=== PATIENT | male | born 1990 | race Caucasian/White ===

== ENCOUNTER 2018-05-20 16:35 | Emergency (ER) | payer MEDICAID ==
[~2018-05-20] VITALS: Ht 172.7 cm; Wt 81.6 kg
[2018-05-20 16:40] VITALS: BP 112/65
--- NOTE | 2018-05-20 16:50 | NUR ---
C/O ABDOMINAL PAIN 15 MIN PRIOR TO ARRIVAL; DENIES N/V/D SKIN IS PINK/WARM/DRY; AAOX4 WITH EVEN AND STEADY GAIT; LUNGS CLEAR BL; HR EVEN AND REGULAR; PT DENIES ANY FEVER, CP, SOB, OR COUGH AT THIS TIME; PATIENT STATES PAIN OF 8/10 AT THIS TIME; VSS; PATIENT POSITIONED FOR COMFORT; HOB ELEVATED; BEDRAILS UP X2; BED DOWN. ER MD MADE AWARE OF PT STATUS.
--- NOTE | 2018-05-20 17:27 | NUR ---
Patient being evaluated by physician at bedside.
[2018-05-20] MEDS ORDERED: ALUMINUM HYD/MAG/SIMETHICONE 30 ML UDC PO ONE (17:35)
[2018-05-20] MEDS ORDERED: FAMOTIDINE 20 MG TAB PO ONE (17:35)
[2018-05-20 18:31] VITALS: BP 112/65
--- NOTE | 2018-05-20 18:31 | NUR ---
Patient discharged with v/s stable. Written and verbal after care instructions given and explained. Patient alert, oriented and verbalized understanding of instructions. Ambulatory with steady gait. All questions addressed prior to discharge. ID band removed. Patient advised to follow up with PMD. Rx of PEPCID, HYDROCORTISONE given. Patient educated on indication of medication including possible reaction and side effects. Opportunity to ask questions provided and answered.
== END 2018-05-20 18:31 | disposition home or self-care (01) ==
LOC: MED 16:35
DX: L30.9 Dermatitis, unspecified (principal); R10.32 Left lower quadrant pain
CPT/HCPCS: 81002; 99283

== ENCOUNTER 2019-03-22 18:00 | Emergency (ER) | payer MEDICAID ==
[~2019-03-22] VITALS: Ht 172.7 cm; Wt 59.0 kg
[2019-03-22 18:12] VITALS: BP 109/66
[2019-03-22 21:02] LABS: BASOPHILS % (AUTO) 0.3 % (0.0-2.0); EOSINOPHILS # (AUTO) 0.1 K/uL (0-0.4); EOSINOPHILS % (AUTO) 2.3 % (0.0-4.0); HEMATOCRIT 46.2 % (36-52); HEMOGLOBIN 15.8 g/dL (12.0-18.0); LYMPHOCYTES # (AUTO) 1.1 K/uL (2.0-11.5); LYMPHOCYTES % (AUTO) 17.1 % (20.5-51.1); MEAN CORPUSCULAR HEMOGLOBIN 31 pg (27-31); MEAN CORPUSCULAR HGB CONC 34 g/dL (33-37); MEAN CORPUSCULAR VOLUME 90.6 fL (80-94); MONOCYTES # (AUTO) 0.5 K/uL (0.8-1.0); MONOCYTES % (AUTO) 7.7 % (1.7-9.3); NEUTROPHILS # (AUTO) 4.6 K/uL (1.8-7.7); NEUTROPHILS % (AUTO) 72.6 % (42.2-75.2); PLATELET COUNT (AUTO) 238 K/uL (140-450); RED CELL DISTRIBUTION WIDTH 13.2 % (11.6-13.7); WHITE BLOOD COUNT (AUTO) 6.3 K/uL (4.8-10.8)
[2019-03-22 21:17] LABS: ANION GAP 9.9 (8-16); CREATININE 0.8 mg/dL (0.7-1.3); POTASSIUM 3.9 mmol/L (3.5-5.1)
[2019-03-22 21:54] VITALS: BP 98/73
== END 2019-03-22 21:54 | disposition home or self-care (01) ==
LOC: MED 18:00
DX: T63.441A Toxic effect of venom of bees, accidental (unintentional), initial encounter (principal); I95.1 Orthostatic hypotension; Y92.89 Other specified places as the place of occurrence of the external cause
CPT/HCPCS: 36415; 80048; 85025; 93005; 99284

== ENCOUNTER 2020-09-28 16:32 | Emergency (ER) | payer MEDICAID ==
[~2020-09-28] VITALS: Ht 172.7 cm; Wt 61.7 kg
--- NOTE | 2020-09-28 16:39 | NUR ---
W/C ASSISTED TO BED 8
[2020-09-28 16:40] VITALS: BP 166/87
--- NOTE | 2020-09-28 16:44 | NUR ---
30 y/o M coming in from home with c/c left leg rash. Pt states fever two days ago, he went to bed, woke up the next morning and noticed the rash to the left leg. Rash with redness/warmth/swelling noted to left lower extremity. Pt states pain is 8/10, swelling/constant, radiating up his left leg. Pt states associated fever, chills. Pt states he took Ibuprofen with no relief. Denies N/V/D, chest pain,a bdominal pain, cough, cold-like symptmos. Pt placed onto BP cuff/pulse ox. Lung sounds CTA. Bed locked in lowest position, side rails x 1. PMH/Meds: Denies NKA Sx: denies
--- NOTE | 2020-09-28 16:45 | NUR ---
Dr. Rivas is evaluating patient at bedside.
[2020-09-28] MEDS ORDERED: cephALEXin 500 MG CAP PO ONE (17:00)
[2020-09-28] MEDS ORDERED: CEPH500T PO (17:04)
--- NOTE | 2020-09-28 17:25 | NUR ---
Patient resting in position of comfort in semi-fowlers position. Respirations even/unlabored. All pt needs met at this time. bus monitor in place. Bed locked in lowest position, side rails x1.
[2020-09-28 17:33] VITALS: BP 114/55
== END 2020-09-28 17:33 | disposition home or self-care (01) ==
LOC: MED 16:32
DX: L03.116 Cellulitis of left lower limb (principal); Z79.899 Other long term (current) drug therapy
CPT/HCPCS: 99283

== ENCOUNTER 2020-10-01 11:49 | Inpatient (IN) | payer MEDICAID, SELFPAY ==
[~2020-10-01] VITALS: Ht 172.7 cm; Wt 62.1 kg
[~2020-10-01 11:49] MED LIST: CEPH500T PO
[2020-10-01 11:57] VITALS: BP 106/59
[2020-10-01 12:32] LABS: BASOPHILS % (AUTO) 0.3 % (0.0-2.0); EOSINOPHILS # (AUTO) 0.1 K/uL (0-0.4); EOSINOPHILS % (AUTO) 0.9 % (0.0-4.0); HEMATOCRIT 36.7 % (36-52); HEMOGLOBIN 12.6 g/dL (12.0-18.0); LYMPHOCYTES # (AUTO) 1.1 K/uL (2.0-11.5); LYMPHOCYTES % (AUTO) 17.3 % (20.5-51.1); MEAN CORPUSCULAR HEMOGLOBIN 29 pg (27-31); MEAN CORPUSCULAR HGB CONC 34 g/dL (33-37); MONOCYTES # (AUTO) 0.5 K/uL (0.8-1.0); MONOCYTES % (AUTO) 8.8 % (1.7-9.3); NEUTROPHILS # (AUTO) 4.5 K/uL (1.8-7.7); NEUTROPHILS % (AUTO) 72.7 % (42.2-75.2); PLATELET COUNT (AUTO) 270 K/uL (140-450); RED BLOOD CELL COUNT(AUTO) 4.37 MIL/uL (4.20-6.10); RED CELL DISTRIBUTION WIDTH 13.4 % (11.6-13.7); WHITE BLOOD COUNT (AUTO) 6.2 K/uL (4.8-10.8)
[2020-10-01] MEDS ORDERED: cefTRIAXone 1,000 MG in LIDOCAINE MPF 1% 2.1 ML IM ONE (13:05)
[2020-10-01] MEDS ORDERED: VANCOMYCIN 1,000 MG in DEXTROSE 5% 250 ML IV ONE (13:05)
[2020-10-01] MEDS ORDERED: VANCOMYCIN 1,000 MG VIAL ONE ×3 (13:11→22:41)
[2020-10-01] MEDS ORDERED: cefTRIAXone 1,000 MG VIAL ONE (13:11)
[2020-10-01] MEDS ORDERED: ZOLPIDEM 5 MG TAB PO PRN (13:15)
[2020-10-01] MEDS ORDERED: ONDANSETRON 4 MG/2 ML VIAL IM/IVP PRN (13:15)
[2020-10-01] MEDS ORDERED: LORazepam 2 MG/ML VIAL IM/IVP PRN (13:15)
[2020-10-01] MEDS ORDERED: HYDROcodone/APAP 5/325 MG 1 TAB TAB PO PRN (13:15)
[2020-10-01] MEDS ORDERED: MORPHINE SULFATE 2 MG/ML SYR IVP PRN (13:15)
[2020-10-01] MEDS ORDERED: DOCUSATE SODIUM 100 MG GELCAP PO PRN (13:15)
[2020-10-01] MEDS: NACL 0.9% 1,000 ML IV SCH (13:15)
[2020-10-01] MEDS ORDERED: ACETAMINOPHEN 325 MG TAB PO PRN (13:15)
[2020-10-01] MEDS ORDERED: POTASSIUM CHLORIDE 10 MEQ TABER PO PRN (13:15)
[2020-10-01] MEDS ORDERED: MAG SULF 2000 MG/WATER PREMIX 50 ML IV PRN (13:15)
[2020-10-01 13:40] LABS: PROTHROMBIN TIME 9.4 secs (10.8-13.4)
[2020-10-01 13:43] LABS: ANION GAP 10.3 (8-16); CARBON DIOXIDE 29.7 mmol/L (21-32); CREATININE 0.8 mg/dL (0.6-1.3); TOTAL BILIRUBIN 0.4 mg/dL (0.0-1.0)
[2020-10-01 14:11] LABS: CHOL/HDL RATIO 4.1 (1-4.5); THYROID STIMULATING HORMONE 1.31 uIU/mL (0.34-3.74)
[2020-10-01] MEDS ORDERED: VANCOMYCIN PER PHARMACY MC PRN (14:35)
[2020-10-01 15:30] VITALS: BP 108/53
[2020-10-01 20:00] VITALS: BP 99/58
[2020-10-01 21:01] LABS: APPEARANCE,URINE CLEAR (CLEAR); BILIRUBIN,URINE NEGATIVE (NEGATIVE); BLOOD, URINE NEGATIVE (NEGATIVE); COLOR,URINE YELLOW (YELLOW); LEUKOCYTE ESTERASE ,URINE NEGATIVE (NEGATIVE); NITRITE, URINE NEGATIVE (NEGATIVE); PH,URINE 7.5 (5.0-9.0); UGLUCOSE NEGATIVE (NEGATIVE)
[2020-10-01 21:32] LABS: BARBITURATE, URINE NEGATIVE ng/ml (NEG <=200); BENZODIAZEPINE, URINE NEGATIVE ng/mL (NEG <=200); CANNABINOID, URINE NEGATIVE ng/mL (NEG <=50); COCAINE, URINE NEGATIVE ng/mL (NEG <=300); OPIATE, URINE NEGATIVE ng/mL (NEG <=2000); PHENCYCLIDINE SCREEN,URINE NEGATIVE ng/mL (NEG <=25)
[2020-10-01] MEDS: VANCOMYCIN 750 MG in DEXTROSE 5% 250 ML IV SCH (22:56)
[2020-10-02 04:00] VITALS: BP 118/43
[2020-10-02] MEDS: NACL 0.9% 1,000 ML IV SCH ×3 (05:04→19:15)
[2020-10-02] MEDS: VANCOMYCIN 750 MG in DEXTROSE 5% 250 ML IV SCH ×3 (05:04→21:14)
[2020-10-02 05:55] LABS: ANION GAP 8.7 (8-16); BASOPHILS % (AUTO) 0.4 % (0.0-2.0); CARBON DIOXIDE 28.5 mmol/L (21-32); CREATININE 0.8 mg/dL (0.6-1.3); EOSINOPHILS # (AUTO) 0.1 K/uL (0-0.4); EOSINOPHILS % (AUTO) 1.5 % (0.0-4.0); HEMATOCRIT 35.7 % (36-52); HEMOGLOBIN 12.5 g/dL (12.0-18.0); LYMPHOCYTES # (AUTO) 1.8 K/uL (2.0-11.5); LYMPHOCYTES % (AUTO) 24.4 % (20.5-51.1); MEAN CORPUSCULAR HEMOGLOBIN 30 pg (27-31); MEAN CORPUSCULAR HGB CONC 35 g/dL (33-37); MONOCYTES # (AUTO) 0.7 K/uL (0.8-1.0); MONOCYTES % (AUTO) 9.2 % (1.7-9.3); NEUTROPHILS # (AUTO) 4.8 K/uL (1.8-7.7); NEUTROPHILS % (AUTO) 64.5 % (42.2-75.2); PLATELET COUNT (AUTO) 266 K/uL (140-450); POTASSIUM 4.2 mmol/L (3.5-5.1); RED CELL DISTRIBUTION WIDTH 13.4 % (11.6-13.7); WHITE BLOOD COUNT (AUTO) 7.4 K/uL (4.8-10.8)
[2020-10-02 05:58] LABS: PHOSPHORUS 4.9 mg/dL (2.5-4.9)
[2020-10-02] MEDS ORDERED: VANCOMYCIN 1,000 MG VIAL ONE (07:12)
[2020-10-02 08:00] VITALS: BP 102/58
[2020-10-02 09:06] LABS: T4 (THYROXINE) 8.8 ug/dL (4.5-12.0)
[2020-10-02 12:00] VITALS: BP 103/60
[2020-10-02 16:00] VITALS: BP 109/50
[2020-10-02 20:00] VITALS: BP 108/54
[2020-10-02] MEDS: ZINC SULF 220 MG CAP PO SCH (20:15)
[2020-10-03 04:00] VITALS: BP 98/74
[2020-10-03] MEDS: NACL 0.9% 1,000 ML IV SCH ×2 (05:10→15:15)
[2020-10-03] MEDS: VANCOMYCIN 750 MG in DEXTROSE 5% 250 ML IV SCH ×3 (05:12→21:27)
[2020-10-03 05:41] LABS: BASOPHILS # (AUTO) 0.1 K/uL (0.00-0.22); EOSINOPHILS # (AUTO) 0.2 K/uL (0-0.4); EOSINOPHILS % (AUTO) 1.9 % (0.0-4.0); HEMATOCRIT 36.7 % (36-52); HEMOGLOBIN 12.5 g/dL (12.0-18.0); LYMPHOCYTES # (AUTO) 1.8 K/uL (2.0-11.5); MEAN CORPUSCULAR HEMOGLOBIN 29 pg (27-31); MEAN CORPUSCULAR HGB CONC 34 g/dL (33-37); MEAN CORPUSCULAR VOLUME 85.4 fL (80-94); MONOCYTES # (AUTO) 0.6 K/uL (0.8-1.0); MONOCYTES % (AUTO) 7.1 % (1.7-9.3); NEUTROPHILS # (AUTO) 5.6 K/uL (1.8-7.7); PLATELET COUNT (AUTO) 302 K/uL (140-450); RED CELL DISTRIBUTION WIDTH 13.2 % (11.6-13.7); WHITE BLOOD COUNT (AUTO) 8.3 K/uL (4.8-10.8)
[2020-10-03 05:47] LABS: MAGNESIUM 2.1 mg/dL (1.8-2.4); PHOSPHORUS 5.3 mg/dL (2.5-4.9)
[2020-10-03 08:00] VITALS: BP 94/52
[2020-10-03 09:17] LABS: ANION GAP 11.4 (8-16); POTASSIUM 4.4 mmol/L (3.5-5.1)
[2020-10-03] MEDS: ASCORBIC ACID 500 MG TAB PO SCH (09:24)
[2020-10-03] MEDS: ZINC SULF 220 MG CAP PO SCH ×2 (09:25→21:26)
[2020-10-03] MEDS: VITAMIN D 400 IU TAB PO SCH (09:25)
[2020-10-03 16:00] VITALS: BP 114/57
[2020-10-03 20:00] VITALS: BP 101/48
[2020-10-04] MEDS: NACL 0.9% 1,000 ML IV SCH ×2 (01:15→06:31)
[2020-10-04 04:00] VITALS: BP 114/41
[2020-10-04 05:24] LABS: BASOPHILS % (AUTO) 0.6 % (0.0-2.0); EOSINOPHILS # (AUTO) 0.2 K/uL (0-0.4); EOSINOPHILS % (AUTO) 2.7 % (0.0-4.0); HEMATOCRIT 36.5 % (36-52); HEMOGLOBIN 12.4 g/dL (12.0-18.0); LYMPHOCYTES # (AUTO) 1.6 K/uL (2.0-11.5); MEAN CORPUSCULAR HEMOGLOBIN 29 pg (27-31); MEAN CORPUSCULAR HGB CONC 34 g/dL (33-37); MEAN CORPUSCULAR VOLUME 85.1 fL (80-94); MONOCYTES # (AUTO) 0.6 K/uL (0.8-1.0); MONOCYTES % (AUTO) 8.8 % (1.7-9.3); NEUTROPHILS # (AUTO) 4.1 K/uL (1.8-7.7); NEUTROPHILS % (AUTO) 62.9 % (42.2-75.2); PLATELET COUNT (AUTO) 338 K/uL (140-450); RED BLOOD CELL COUNT(AUTO) 4.29 MIL/uL (4.20-6.10); RED CELL DISTRIBUTION WIDTH 13.2 % (11.6-13.7); WHITE BLOOD COUNT (AUTO) 6.5 K/uL (4.8-10.8)
[2020-10-04 05:53] LABS: ANION GAP 9.8 (8-16); CARBON DIOXIDE 30.1 mmol/L (21-32); CREATININE 0.8 mg/dL (0.6-1.3); PHOSPHORUS 4.3 mg/dL (2.5-4.9); POTASSIUM 3.9 mmol/L (3.5-5.1)
[2020-10-04] MEDS: VANCOMYCIN 750 MG in DEXTROSE 5% 250 ML IV SCH (06:31)
[2020-10-04] MEDS: ASCORBIC ACID 500 MG TAB PO SCH (09:36)
[2020-10-04] MEDS: VITAMIN D 400 IU TAB PO SCH (09:36)
[2020-10-04] MEDS: ZINC SULF 220 MG CAP PO SCH (09:37)
[2020-10-04] MEDS ORDERED: VITC500 PO (11:04)
[2020-10-04] MEDS ORDERED: CLIN300C7 PO (11:04)
[2020-10-04] MEDS ORDERED: LACT10CA PO (11:04)
[2020-10-04] MEDS ORDERED: VITD400 PO (11:04)
[2020-10-04] MEDS ORDERED: ZINC220C28 PO (11:04)
[2020-10-04 13:23] VITALS: BP 121/80
== END 2020-10-04 14:12 | disposition home or self-care (01) | DRG 383 ==
LOC: MED 11:49 → MTU 13:17
DX: L03.116 Cellulitis of left lower limb (principal); E44.0 Moderate protein-calorie malnutrition; Z20.822 Contact with and (suspected) exposure to COVID-19; J40 Bronchitis, not specified as acute or chronic; Z68.20 Body mass index [BMI] 20.0-20.9, adult
CPT/HCPCS: 36415; 71045; 80048; 80053; 80202; 80305; 81003; 82150; 82550; 83036; 83690; 83735; 83880; 84100; 84134; 84436; 84443; 84484; 85025; 85610; 85730; 86140; 86360; 87040; 87081; 87529; 93971; 99285; J0696; J1644; J3370; J7030; J7060; U0003

== ENCOUNTER 2020-10-28 14:37 | Emergency (ER) | payer MEDICAID, SELFPAY ==
[~2020-10-28] VITALS: Ht 172.7 cm; Wt 61.2 kg
[~2020-10-28 14:37] MED LIST changes: -CEPH500T PO; +CLIN300C7 PO; +LACT10CA PO; +VITC500 PO; +VITD400 PO; +ZINC220C28 PO
[2020-10-28 14:49] VITALS: BP 116/70
--- NOTE | 2020-10-28 15:10 | NUR ---
PATIENT LEFT WITHOUT BEING SEEN BY DR. ANDREWS. NO FURTHER CARE PROVIDED FOR PATIENT.
== END 2020-10-28 15:10 | disposition left against medical advice (07) ==
LOC: MED 14:37
DX: Z20.822 Contact with and (suspected) exposure to COVID-19 (principal); Z53.21 Procedure and treatment not carried out due to patient leaving prior to being seen by health care provider

== ENCOUNTER 2021-08-11 11:37 | Emergency (ER) | payer MEDICAID, SELFPAY ==
[~2021-08-11] VITALS: Ht 172.7 cm; Wt 60.3 kg
[~2021-08-11 11:37] MED LIST changes: -CLIN300C7 PO; +CLIN300C73 PO
[2021-08-11 11:51] VITALS: BP 117/57
--- NOTE | 2021-08-11 11:55 | NUR ---
PT SENT TO LOBBY
[2021-08-11] MEDS ORDERED: KETOROLAC 30 MG/ML VIAL IM ONE (12:10)
[2021-08-11] MEDS ORDERED: CEPH-588 PO (12:12)
[2021-08-11] MEDS ORDERED: ACET-8386 PO (12:12)
--- NOTE | 2021-08-11 12:40 | NUR ---
30/M BIB SELF WITH C/O RIGHT INDEX FINGER PAIN SINCE WEDNESDAY, STATES HE INJURED IT AT WORK WHILE SCRAPING A SURFACE. SWELLING NOTED TO FINGER, NO DEFORMITY NOTED. PATIENT STATES HE HAD MEDICATION FROM A PREVIOUS TOENAIL INFECTION THAT HE HAS BEEN USING ON FINGER, STATES 7/10 THROBBING PAIN.
[2021-08-11 13:02] VITALS: BP 117/57
--- NOTE | 2021-08-11 13:02 | NUR ---
Patient discharged with v/s stable. Written and verbal after care instructions ABOUT CELLULITIS given and explained. Patient alert, oriented and verbalized understanding of instructions. Ambulatory with steady gait. All questions addressed prior to discharge. ID band removed. Patient advised to follow up with PMD. Rx of KEFLEX AND NORCO 5-325 given. Patient educated on indication of medication including possible reaction and side effects. Opportunity to ask questions provided and answered.
== END 2021-08-11 13:02 | disposition home or self-care (01) ==
LOC: MED 11:37
DX: L03.011 Cellulitis of right finger (principal)
CPT/HCPCS: 96372; 99283; J1885

== ENCOUNTER 2022-04-07 15:19 | Emergency (ER) | payer MEDICAID ==
[~2022-04-07] VITALS: Ht 172.7 cm; Wt 61.2 kg
[~2022-04-07 15:19] MED LIST changes: +ACET-8386 PO; +CEPH-588 PO
[2022-04-07 15:55] VITALS: BP 114/59
--- NOTE | 2022-04-07 16:01 | NUR ---
VIKRAM. RADHA GARIBAYIA SWAB DONE.
[2022-04-07] MEDS ORDERED: KETOROLAC 30 MG/ML VIAL IM ONE (17:35)
[2022-04-07] MEDS ORDERED: CYCL-711 PO (17:44)
[2022-04-07] MEDS ORDERED: LID5T TP (17:44)
[2022-04-07] MEDS ORDERED: PROM118S5 PO (17:51)
[2022-04-07] MEDS ORDERED: KETOROLAC 30 MG/ML VIAL ONE (19:07)
--- NOTE | 2022-04-07 19:20 | NUR ---
Patient discharged with v/s stable. Written and verbal after care instructions given and explained. Patient alert, oriented and verbalized understanding of instructions. Ambulatory with steady gait. All questions addressed prior to discharge. ID band removed. Patient advised to follow up with PMD. Rx of FLEXERIL, LIDODERM PATCH, PROMETHAZINE given. Patient educated on indication of medication including possible reaction and side effects. Opportunity to ask questions provided and answered.
== END 2022-04-07 19:20 | disposition home or self-care (01) ==
LOC: MED 15:19
DX: M54.50 Low back pain, unspecified (principal); Z20.822 Contact with and (suspected) exposure to COVID-19
CPT/HCPCS: 87426; 96372; 99283; J1885

== ENCOUNTER 2022-05-16 14:51 | Emergency (ER) | payer MEDICAID ==
[~2022-05-16] VITALS: Ht 172.7 cm; Wt 61.2 kg
[~2022-05-16 14:51] MED LIST changes: +CYCL-711 PO; +LID5T TP; +PROM118S5 PO
[2022-05-16 15:07] VITALS: BP 120/61
--- NOTE | 2022-05-16 15:28 | NUR ---
TO ER BED 2
[2022-05-16 15:53] LABS: BASOPHILS # (AUTO) 0.1 K/uL (0.00-0.22); BASOPHILS % (AUTO) 1.1 % (0.0-2.0); EOSINOPHILS # (AUTO) 0.1 K/uL (0-0.4); EOSINOPHILS % (AUTO) 1.7 % (0.0-4.0); HEMATOCRIT 44.7 % (36-52); HEMOGLOBIN 15.8 g/dL (12.0-18.0); LYMPHOCYTES # (AUTO) 1.7 K/uL (2.0-11.5); LYMPHOCYTES % (AUTO) 33.5 % (20.5-51.1); MEAN CORPUSCULAR HEMOGLOBIN 31 pg (27-31); MEAN CORPUSCULAR HGB CONC 35 g/dL (33-37); MEAN CORPUSCULAR VOLUME 86.7 fL (80-94); MONOCYTES # (AUTO) 0.3 K/uL (0.8-1.0); MONOCYTES % (AUTO) 5.6 % (1.7-9.3); NEUTROPHILS % (AUTO) 58.1 % (42.2-75.2); PLATELET COUNT (AUTO) 244 K/uL (140-450); RED BLOOD CELL COUNT(AUTO) 5.15 MIL/uL (4.20-6.10); RED CELL DISTRIBUTION WIDTH 13.1 % (11.6-13.7); WHITE BLOOD COUNT (AUTO) 5.2 K/uL (4.8-10.8)
[2022-05-16] MEDS ORDERED: ACETAMINOPHEN EXTRA STRENGTH 500 MG TAB PO ONE (16:00)
[2022-05-16] MEDS ORDERED: FAMOTIDINE 20 MG TAB PO ONE (16:00)
[2022-05-16 16:28] LABS: ALBUMIN 3.7 g/dL (3.4-5.0); ANION GAP 14.3 (8-16); CARBON DIOXIDE 27.8 mmol/L (21-32); POTASSIUM 4.1 mmol/L (3.5-5.1); TOTAL BILIRUBIN 0.5 mg/dL (0.0-1.0)
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
[2022-05-16 16:55] LABS: APPEARANCE,URINE CLEAR (CLEAR); BILIRUBIN,URINE NEGATIVE (NEGATIVE); BLOOD, URINE TRACE-I (NEGATIVE); COLOR,URINE YELLOW (YELLOW); LEUKOCYTE ESTERASE ,URINE NEGATIVE (NEGATIVE); NITRITE, URINE NEGATIVE (NEGATIVE); PH,URINE 7.5 (5.0-9.0); UGLUCOSE NEGATIVE (NEGATIVE)
[2022-05-16 17:12] LABS: BARBITURATE, URINE NEGATIVE ng/ml (NEG <=200); BENZODIAZEPINE, URINE NEGATIVE ng/mL (NEG <=200); CANNABINOID, URINE NEGATIVE ng/mL (NEG <=50); COCAINE, URINE NEGATIVE ng/mL (NEG <=300); OPIATE, URINE NEGATIVE ng/mL (NEG <=2000); PHENCYCLIDINE SCREEN,URINE NEGATIVE ng/mL (NEG <=25)
[2022-05-16] MEDS ORDERED: LID5T TP (18:14)
[2022-05-16] MEDS ORDERED: BEN10 PO (18:14)
[2022-05-16] MEDS ORDERED: IBUP-2213 PO (18:14)
[2022-05-16 18:38] VITALS: BP 122/78
--- NOTE | 2022-05-16 18:40 | NUR ---
Patient discharged with v/s stable. Written and verbal after care instructions given and explained. Patient verbalized understanding. Ambulatory with steady gait. All questions addressed prior to discharge. Advised to follow up with PMD. neck and abd pain 07/28, no n/v
== END 2022-05-16 18:40 | disposition home or self-care (01) ==
LOC: MED 14:51
DX: S16.1XXA Strain of muscle, fascia and tendon at neck level, initial encounter (principal); R10.9 Unspecified abdominal pain; X58.XXXA Exposure to other specified factors, initial encounter; Y93.89 Activity, other specified; Y92.89 Other specified places as the place of occurrence of the external cause; Y99.8 Other external cause status
CPT/HCPCS: 36415; 71045; 80053; 80305; 81003; 83690; 85025; 99284; Q0092

== ENCOUNTER 2023-01-18 21:02 | Emergency (ER) | payer MEDICAID ==
[~2023-01-18] VITALS: Ht 172.7 cm; Wt 59.9 kg
[~2023-01-18 21:02] MED LIST changes: -ACET-8386 PO; +ACET-8905 PO; +BEN10 PO; +IBUP-2213 PO
[2023-01-18 21:10] VITALS: BP 131/75; PULSE 70; RESP 17; TEMP 98.8; O2SAT 99
--- NOTE | 2023-01-18 21:13 | NUR ---
TO LOBBY A/W BED AMBULATORY
--- NOTE | 2023-01-18 22:29 | NUR ---
PT WITH WILLY DSOUZA
[2023-01-18] MEDS ORDERED: KETOROLAC 30 MG/ML VIAL IM ONE (22:40)
[2023-01-18] MEDS ORDERED: NAPR-54 PO (23:03)
[2023-01-18] MEDS ORDERED: CYCL-711 PO (23:03)
[2023-01-18] MEDS ORDERED: LID5T TP (23:03)
[2023-01-18 23:09] VITALS: BP 131/75; PULSE 70; RESP 17; TEMP 98.8; O2SAT 99
--- NOTE | 2023-01-18 23:09 | NUR ---
Patient discharged with v/s stable. Written and verbal after care instructions given and explained. Patient alert, oriented and verbalized understanding of instructions. Ambulatory with steady gait. All questions addressed prior to discharge. ID band removed. Patient advised to follow up with PMD. Rx given to pt. Patient educated on indication of medication including possible reaction and side effects. Opportunity to ask questions provided and answered.
== END 2023-01-18 23:09 | disposition home or self-care (01) ==
LOC: MED 21:02
DX: S16.1XXA Strain of muscle, fascia and tendon at neck level, initial encounter (principal); Z79.899 Other long term (current) drug therapy; X58.XXXA Exposure to other specified factors, initial encounter; Y93.89 Activity, other specified; Y92.89 Other specified places as the place of occurrence of the external cause; Y99.8 Other external cause status
CPT/HCPCS: 96372; 99283; J1885

== ENCOUNTER 2023-02-25 21:44 | Emergency (ER) | payer MEDICAID ==
[~2023-02-25] VITALS: Ht 172.7 cm; Wt 61.2 kg
[~2023-02-25 21:44] MED LIST changes: +NAPR-54 PO
[2023-02-25 21:50] VITALS: BP 104/60; PULSE 67; RESP 17; TEMP 97.6; O2SAT 99
[2023-02-25] MEDS ORDERED: KETOROLAC 30 MG/ML VIAL IM ONE (22:35)
[2023-02-25] MEDS ORDERED: IBUP-2213 PO (22:43)
[2023-02-25 23:10] VITALS: BP 111/71; PULSE 68; RESP 15; TEMP 97.6; O2SAT 99
== END 2023-02-25 23:10 | disposition home or self-care (01) ==
LOC: MED 21:44
DX: S16.1XXA Strain of muscle, fascia and tendon at neck level, initial encounter (principal); Z79.899 Other long term (current) drug therapy; Z79.1 Long term (current) use of non-steroidal anti-inflammatories (NSAID); Z79.2 Long term (current) use of antibiotics; X58.XXXA Exposure to other specified factors, initial encounter; Y92.89 Other specified places as the place of occurrence of the external cause; Y93.89 Activity, other specified; Y99.8 Other external cause status
CPT/HCPCS: 96372; 99283; J1885

== ENCOUNTER 2023-05-24 11:07 | Emergency (ER) | payer MEDICAID ==
[~2023-05-24] VITALS: Ht 172.7 cm; Wt 61.2 kg
[2023-05-24 11:41] VITALS: BP 96/57; PULSE 57; RESP 20; TEMP 98.3; O2SAT 98
[2023-05-24 12:16] LABS: APPEARANCE,URINE CLEAR (CLEAR); BILIRUBIN,URINE NEGATIVE (NEGATIVE); BLOOD, URINE TRACE-I (NEGATIVE); COLOR,URINE YELLOW (YELLOW); LEUKOCYTE ESTERASE ,URINE NEGATIVE (NEGATIVE); NITRITE, URINE NEGATIVE (NEGATIVE); PH,URINE 6.5 (5.0-9.0); PROTEIN,URINE NEGATIVE (NEGATIVE); UGLUCOSE NEGATIVE (NEGATIVE); UROBILINOGEN,URINE 0.2 EU/dL (0.2 - 1)
[2023-05-24 12:18] LABS: FLU A ANTIGEN negative (NEGATIVE); FLU B ANTIGEN negative (NEGATIVE)
[2023-05-24] MEDS ORDERED: DICYCLOMINE 20 MG/2 ML VIAL IM ONE (12:40)
[2023-05-24] MEDS ORDERED: BEN10 PO (12:55)
[2023-05-24 13:01] VITALS: BP 96/57; PULSE 57; RESP 20; TEMP 98.3; O2SAT 98
== END 2023-05-24 13:01 | disposition home or self-care (01) ==
LOC: MED 11:07
DX: A08.4 Viral intestinal infection, unspecified (principal); Z20.822 Contact with and (suspected) exposure to COVID-19; Z79.899 Other long term (current) drug therapy
CPT/HCPCS: 81003; 99283

== ENCOUNTER 2024-01-02 16:19 | Emergency (ER) | payer MEDICAID ==
[~2024-01-02] VITALS: Ht 172.7 cm; Wt 59.4 kg
[~2024-01-02 16:19] MED LIST changes: +NAPR-337 PO; -NAPR-54 PO
[2024-01-02 16:34] VITALS: BP 99/63; PULSE 67; RESP 18; TEMP 98.3; O2SAT 98
[2024-01-02] MEDS: KETOROLAC 30 MG/ML VIAL IM ONE (17:02)
[2024-01-02] MEDS ORDERED: DICL100G32 TP (19:10)
[2024-01-02] MEDS ORDERED: NAPR-337 PO (19:10)
[2024-01-02] MEDS ORDERED: CYCL-711 PO (19:10)
[2024-01-02 19:20] VITALS: BP 99/63; PULSE 67; RESP 18; TEMP 36.83628; O2SAT 98
== END 2024-01-02 19:20 | disposition home or self-care (01) ==
LOC: MED 16:19
DX: S16.1XXA Strain of muscle, fascia and tendon at neck level, initial encounter (principal); Z79.1 Long term (current) use of non-steroidal anti-inflammatories (NSAID); Z79.2 Long term (current) use of antibiotics; Z79.899 Other long term (current) drug therapy; X58.XXXA Exposure to other specified factors, initial encounter; Y93.89 Activity, other specified; Y92.89 Other specified places as the place of occurrence of the external cause; Y99.8 Other external cause status
CPT/HCPCS: 72040; 96372; 99283; J1885; Q0092